=== PATIENT | female | born 1970 | race African-American/Black ===

== ENCOUNTER 2016-10-21 11:25 | Emergency (ER) | payer MEDICAID ==
[~2016-10-21] VITALS: Ht 162.6 cm; Wt 119.0 kg
[2016-10-21] MEDS ORDERED: HYDR12.53 PO (12:10)
[2016-10-21] MEDS ORDERED: HYDROcodone/APAP 5/325 TABLET ONE (12:15)
[2016-10-21] MEDS ORDERED: HYDROcodone/APAP 5/325 TABLET PO ONE (12:30)
[2016-10-21 12:39] VITALS: BP 168/98
== END 2016-10-21 13:16 | disposition home or self-care (01) ==
LOC: ED 13:10
DX: K02.9 Dental caries, unspecified (principal); I10 Essential (primary) hypertension
CPT/HCPCS: 99283